=== PATIENT | female | born 1980 | race Caucasian/White ===

== ENCOUNTER 2018-03-14 09:10 | Emergency (ER) | payer MEDICAID ==
[2018-03-14 10:36] VITALS: BP 113/81
== END 2018-03-14 10:36 | disposition home or self-care (01) ==
LOC: ED 09:10
DX: S39.012A Strain of muscle, fascia and tendon of lower back, initial encounter (principal); W01.0XXA Fall on same level from slipping, tripping and stumbling without subsequent striking against object, initial encounter; Y93.89 Activity, other specified; Y92.89 Other specified places as the place of occurrence of the external cause; Y99.8 Other external cause status